=== PATIENT | male | born 1975 | race Caucasian/White ===

== ENCOUNTER 2020-10-26 10:31 | Emergency (ER) | payer SELFPAY ==
[~2020-10-26] VITALS: Ht 182.9 cm; Wt 67.0 kg
[~2020-10-26 10:31] MED LIST: IBUP-1902 PO; OXYC1TAB14 PO
--- NOTE | 2020-10-26 11:11 | NUR ---
PT ACTIVELY REFUSING BLOOD DRAW AND IV INSERTION. PT'S DAD AT BS ATTEMPTING TO TALK PT INTO PROCEDURE. WILL CONSULT ERP.
--- NOTE | 2020-10-26 11:16 | NUR ---
PT INFORMED OF CHOICES: CONTINUE WITH ORDERED PROCEDURES OR BE DISCHARGED. PT REQUESTING "A COUPLE OF MINUTES TO THINK IT OVER". PT'S DAD AT .
--- NOTE | 2020-10-26 11:43 | NUR ---
PT CONTINUING TO REFUSE BLOOD DRAW AND IV INSERTION. URINAL PROVIDED, PT UNWILLING TO WALK TO BR AT THIS TIME.
[2020-10-26] MEDS ORDERED: ACETAMINOPHEN 500 MG TABLET ONE (11:45)
[2020-10-26] MEDS ORDERED: IBUPROFEN 600 MG TABLET ONE (11:45)
--- NOTE | 2020-10-26 11:51 | NUR ---
VOIDED SPECIMEN COLLECTED.
[2020-10-26] MEDS ORDERED: IBUPROFEN 600 MG TABLET PO ONE (12:00)
[2020-10-26] MEDS ORDERED: ACETAMINOPHEN 500 MG TABLET PO ONE (12:00)
[2020-10-26] MEDS ORDERED: SODIUM CHLORIDE 0.9% 1,000ML IVBOLUS ONE (12:00)
[2020-10-26] MEDS ORDERED: ONDANSETRON 2MG/ML, 2ML IVPush ONE (12:00)
--- NOTE | 2020-10-26 12:02 | NUR ---
TYLENOL AND IBUPROFEN GIVEN PER EMAR. DIRECTOR OF GRADUATE ADMISSIONS APPLIED. DAD AT BS.
--- NOTE | 2020-10-26 12:28 | NUR ---
[employer]ER AT . PT ACTIVELY RESISTING BLOOD DRAW. ERP AWARE OF PT'S REFUSALS.
--- NOTE | 2020-10-26 12:41 | NUR ---
LABS AND IV CANCELLED, PER ERP.
[2020-10-26 12:58] LABS: MICROSCOPIC INDICATED
--- NOTE | 2020-10-26 13:03 | NUR ---
AWAITING UA RESULT
--- NOTE | 2020-10-26 13:14 | NUR ---
RESTING QUIETLY ON GURSUNNY. DAD IN ROOM
--- NOTE | 2020-10-26 13:26 | NUR ---
LYING QUIETLY ON GURNEY. STATES HE FEELS "A LITTLE BETTER". CARDIAC MONITORING CONTINUING: NSR. DAD AT .
[2020-10-26 13:36] VITALS: BP 103/55
== END 2020-10-26 13:40 | disposition home or self-care (01) ==
LOC: ED 11:20
DX: B02.9 Zoster without complications (principal); B34.9 Viral infection, unspecified; R94.31 Abnormal electrocardiogram [ECG] [EKG]
CPT/HCPCS: 71045; 81001; 93005; 99285